=== PATIENT | female | born 1935 | race Caucasian/White ===

== ENCOUNTER 2017-08-26 17:04 | Inpatient (IN) | payer MEDICARE, MEDICAID ==
[~2017-08-26] VITALS: Ht 162.6 cm; Wt 68.0 kg
[2017-08-26] MEDS ORDERED: DEXTROSE 50% WATER 50ML SYRINGE IV ONE ×3 (17:21→17:45)
[2017-08-26 18:06] LABS: HEMATOCRIT. 31.2 % (36.0-48.0); HEMOGLOBIN. 10.3 g/dL (12.0-16.0); MEAN CORPUSCULAR HEMOGLOBIN 31.4 pg (28.0-32.0); MEAN CORPUSCULAR VOLUME 95.7 fL (81.0-99.0); MEAN PLATELET VOLUME 8.1 fl (7.4-10.4); PLATELET 358 x1000/uL (130-400); RED BLOOD CELL COUNT 3.27 mill/uL (4.2-5.4); RED CELL DISTRIBUTION WIDTH 14.3 % (11.6-14.6)
[2017-08-26 18:12] LABS: INR 1.2; PROTHROMBIN TIME 12.1 sec (9.4-11.6)
[2017-08-26 18:23] LABS: CARBON DIOXIDE 28 mEq/L (21-32); CHLORIDE 98 mEq/L (98-107); TROPONIN I 0.05 ng/mL (0.00-0.04)
[2017-08-26 18:40] LABS: PLATELET ESTIMATE NORMAL
[2017-08-26 20:13] LABS: CLARITY URINE CLEAR (CLEAR); COLOR URINE YELLOW (YELLOW); GLUCOSE URINE 2+ (NEGATIVE); KETONES URINE NEGATIVE (NEGATIVE); LEUKOCYTE ESTERASE URINE 1+ (NEGATIVE); NITRITE URINE NEGATIVE (NEGATIVE); OCCULT BLOOD URINE TRACE (NEGATIVE); PH URINE 5.5 (4.5-8.0); PROTEIN URINE 2+ (NEGATIVE); SPECIFIC GRAVITY URINE 1.016 (1.005-1.030); UROBILINOGEN URINE 0.2 E.U./dL (0.2-1.0)
[2017-08-26] MEDS ORDERED: FAMOTIDINE 20MG/2ML VIAL IV SCH (21:00)
[2017-08-26] MEDS ORDERED: NITROGLYCERIN 0.4MG TABLET SL SL PRN (21:00)
[2017-08-26] MEDS ORDERED: MAGNESIUM/ALUMINUM HYDROXIDE/SIMETHICONE 30ML UDC PO PRN (21:00)
[2017-08-26] MEDS ORDERED: ACETAMINOPHEN 325MG TABLET PO PRN (21:00)
[2017-08-26] MEDS ORDERED: ONDANSETRON HCL 4MG/2ML VIAL IV PRN (21:00)
[2017-08-26] MEDS ORDERED: ENOXAPARIN 40MG/0.4ML SYR SUBCUT SCH (21:00)
[2017-08-26] MEDS ORDERED: TRAMADOL 50MG TABLET PO PRN (21:00)
[2017-08-26] MEDS ORDERED: GUAIFENESIN 200MG/10ML SUGAR FREE UDC PO PRN (21:00)
[2017-08-26] MEDS ORDERED: DOCUSATE SODIUM 100MG CAPSULE PO PRN (21:00)
[2017-08-26] MEDS ORDERED: IPRATROPIUM/ALBUTEROL 0.5-3(2.5)MG/3ML NEB INH PRN (21:00)
[2017-08-26] MEDS ORDERED: DIPHENHYDRAMINE 50MG/ML VIAL IV PRN (21:00)
[2017-08-26] MEDS ORDERED: NA PHOS,M-B/NA PHOS,DI-BA ENEMA 118ML PR PRN (21:00)
[2017-08-26] MEDS ORDERED: CLONIDINE 0.1MG TABLET PO PRN (21:00)
[2017-08-26 21:25] VITALS: BP 98/48
[2017-08-26] MEDS ORDERED: ASPIRIN 81MG TABLET PO NR (21:45)
[2017-08-26 23:10] LABS: CREATINE KINASE MB FRACTION 2.3 ng/mL (0.5-3.6); TROPONIN I 0.08 ng/mL (0.00-0.04)
[2017-08-27] VITALS: BP 153/57
[2017-08-27] MEDS ORDERED: LEVOFLOXACIN 500MG PREMIX 100 ML IV NR
[2017-08-27 04:00] VITALS: BP 115/31
[2017-08-27] MEDS: DEXTROSE 50% WATER 50ML SYRINGE IV PRN ×2 (06:33→13:29)
[2017-08-27] MEDS: BLOOD SUGAR DIAGNOSTIC STRIP TEST SCH ×4 (07:17→20:56)
[2017-08-27 07:18] LABS: TROPONIN I 0.08 ng/mL (0.00-0.04)
[2017-08-27] MEDS: INSULIN LISPRO 100 UNITS/ML SUBCUT SCH ×4 (07:18→20:57)
[2017-08-27 07:35] LABS: CREATINE KINASE MB FRACTION 1.6 ng/mL (0.5-3.6)
[2017-08-27 08:00] VITALS: BP 89/43
[2017-08-27] MEDS: SEVELAMER CARBONATE 800 MG TABLET PO SCH ×3 (08:47→18:10)
[2017-08-27] MEDS: FAMOTIDINE 20MG/2ML VIAL IV SCH (08:47)
[2017-08-27] MEDS: ASPIRIN 325MG EC TABLET PO SCH (08:48)
[2017-08-27] MEDS: FOLIC ACID/VITAMIN B COMP W-C TABLET PO SCH (08:48)
[2017-08-27] MEDS ORDERED: CEFTRIAXONE 1 G PREMIX 50 ML IV SCH (09:00)
[2017-08-27] MEDS ORDERED: ENOXAPARIN 30MG/0.3ML SYR SUBCUT SCH (09:00)
[2017-08-27] MEDS ORDERED: LORAZEPAM 2MG/ML CPJ IV NR (11:22)
[2017-08-27 12:00] VITALS: BP 89/42
[2017-08-27 20:00] VITALS: BP 81/38
[2017-08-27] MEDS ORDERED: SODIUM CHLORIDE 0.9% 1,000 ML IV SCH (20:30)
[2017-08-27] MEDS: APIXABAN 2.5 MG TABLET PO SCH (20:59)
[2017-08-28] VITALS (7 sets, daily range): BP systolic 83–133; BP diastolic 40–85
[2017-08-28 07:05] LABS: EOSINOPHILS % 3.3 % (0.0-5.0); HEMATOCRIT. 29.3 % (36.0-48.0); HEMOGLOBIN. 9.8 g/dL (12.0-16.0); LYMPHOCYTES % 15.5 % (20.0-50.0); MEAN CORPUSCULAR HEMOGLOBIN 31.9 pg (28.0-32.0); MEAN CORPUSCULAR VOLUME 95.2 fL (81.0-99.0); MONOCYTES % 9.7 % (2.0-8.0); NEUTROPHILS % 70.5 % (40.0-76.0); PLATELET 280 x1000/uL (130-400); RED BLOOD CELL COUNT 3.07 mill/uL (4.2-5.4); RED CELL DISTRIBUTION WIDTH 13.9 % (11.6-14.6)
[2017-08-28 07:19] LABS: CARBON DIOXIDE 26 mEq/L (21-32); CHLORIDE 106 mEq/L (98-107); PHOSPHORUS 2.2 mg/dL (2.5-4.9)
[2017-08-28] MEDS: BLOOD SUGAR DIAGNOSTIC STRIP TEST SCH ×4 (07:40→21:02)
[2017-08-28] MEDS: INSULIN LISPRO 100 UNITS/ML SUBCUT SCH ×4 (08:10→21:00)
[2017-08-28] MEDS: APIXABAN 2.5 MG TABLET PO SCH ×2 (09:10→21:03)
[2017-08-28] MEDS: FAMOTIDINE 20MG/2ML VIAL IV SCH (09:10)
[2017-08-28] MEDS: ASPIRIN 325MG EC TABLET PO SCH (09:11)
[2017-08-28] MEDS: SEVELAMER CARBONATE 800 MG TABLET PO SCH (09:11)
[2017-08-28] MEDS: FOLIC ACID/VITAMIN B COMP W-C TABLET PO SCH (09:11)
[2017-08-28] MEDS: CEFTRIAXONE 1 G PREMIX 50 ML IV SCH (10:16)
[2017-08-28] MEDS ORDERED: EPOETIN ALFA 4000UNITS/ML VIAL SUBCUT NR (21:00)
[2017-08-28] MEDS ORDERED: LEVOFLOXACIN 250MG PREMIX 50 ML IV SCH (21:00)
[2017-08-29] VITALS: BP 125/80
[2017-08-29 04:00] VITALS: BP 140/59
[2017-08-29] MEDS: BLOOD SUGAR DIAGNOSTIC STRIP TEST SCH ×2 (06:21→12:55)
[2017-08-29] MEDS: INSULIN LISPRO 100 UNITS/ML SUBCUT SCH ×2 (06:21→12:55)
[2017-08-29 06:27] LABS: BASOPHILS % 1.2 % (0.0-2.0); EOSINOPHILS % 5.3 % (0.0-5.0); HEMATOCRIT. 28.5 % (36.0-48.0); HEMOGLOBIN. 9.4 g/dL (12.0-16.0); MEAN CORPUSCULAR HEMOGLOBIN 31.7 pg (28.0-32.0); MEAN CORPUSCULAR VOLUME 95.8 fL (81.0-99.0); MEAN PLATELET VOLUME 7.9 fl (7.4-10.4); MONOCYTES % 9.6 % (2.0-8.0); NEUTROPHILS % 65.9 % (40.0-76.0); PLATELET 266 x1000/uL (130-400); RED BLOOD CELL COUNT 2.97 mill/uL (4.2-5.4)
[2017-08-29 07:58] LABS: PHOSPHORUS 2.4 mg/dL (2.5-4.9)
[2017-08-29 08:00] VITALS: BP 98/40
[2017-08-29] MEDS: FAMOTIDINE 20MG/2ML VIAL IV SCH (09:09)
[2017-08-29] MEDS: FOLIC ACID/VITAMIN B COMP W-C TABLET PO SCH (09:09)
[2017-08-29] MEDS: ASPIRIN 325MG EC TABLET PO SCH (09:09)
[2017-08-29] MEDS: APIXABAN 2.5 MG TABLET PO SCH (09:09)
[2017-08-29] MEDS: CEFTRIAXONE 1 G PREMIX 50 ML IV SCH (10:06)
[2017-08-29 12:00] VITALS: BP_SYST 121; BP_SYST 128; BP_SYST 137; BP_DIAS 48; BP_DIAS 54; BP_DIAS 57
[2017-08-29 13:21] VITALS: BP 137/57
== END 2017-08-29 14:10 | disposition home or self-care (01) | DRG 637 ==
LOC: ER 18:08 → 7WST 19:51 → EDBEDREQ 19:55 → ENRESERV 20:18 → SUPCPDRO 20:46
PROVIDERS: ADMIT Internal Medicine; ATTEND Internal Medicine
DX: E11.649 Type 2 diabetes mellitus with hypoglycemia without coma (principal); G93.40 Encephalopathy, unspecified; N17.0 Acute kidney failure with tubular necrosis; N18.6 End stage renal disease; R65.10 Systemic inflammatory response syndrome (SIRS) of non-infectious origin without acute organ dysfunction; I13.11 Hypertensive heart and chronic kidney disease without heart failure, with stage 5 chronic kidney disease, or end stage renal disease; E11.22 Type 2 diabetes mellitus with diabetic chronic kidney disease; N39.0 Urinary tract infection, site not specified; E87.1 Hypo-osmolality and hyponatremia; I48.91 Unspecified atrial fibrillation; D18.1 Lymphangioma, any site; D63.8 Anemia in other chronic diseases classified elsewhere; Z79.4 Long term (current) use of insulin; Z79.82 Long term (current) use of aspirin; Z82.49 Family history of ischemic heart disease and other diseases of the circulatory system; Z83.3 Family history of diabetes mellitus; Z99.2 Dependence on renal dialysis
CPT/HCPCS: 36415; 70450; 70551; 71010; 80048; 80053; 80061; 81001; 82550; 82553; 82962; 83036; 83605; 83735; 83880; 84100; 84484; 85025; 85610; 87040; 87086; 93005; 93306; 93970; 96374; 96376; 99291; J0696; J0885; J1200; J1650; J1956; J2060; J3490; J7030; J7040